=== PATIENT | female | born 1955 | race Caucasian/White ===

== ENCOUNTER → 2016-10-21 | Outpatient (CLI) | payer OTHER ==
[~2016-10-21] MED LIST: OLME5TAB4 PO
[2016-10-21 12:38] LABS: ASPARTATE AMINO TRANSFERASE 23 U/L (15-37); BLOOD UREA NITROGEN 17 mg/dL (7-18)
== END | disposition home or self-care (01) ==
LOC: LAB 12:10
PROVIDERS: ATTEND Internal Medicine
DX: K86.1 Other chronic pancreatitis (principal); R10.9 Unspecified abdominal pain
CPT/HCPCS: 36415; 80053; 83690; 85025

== ENCOUNTER → 2016-11-02 | Outpatient (CLI) | payer OTHER | END | disposition home or self-care (01) | LOC: CARD 12:49 | PROVIDERS: ATTEND Specialist | DX: G43.009 Migraine without aura, not intractable, without status migrainosus (principal) | CPT/HCPCS: 95819 ==

== ENCOUNTER → 2016-11-14 | Outpatient (CLI) | payer OTHER ==
[2016-11-14 22:33] LABS: ASPARTATE AMINO TRANSFERASE 26 U/L (15-37); BLOOD UREA NITROGEN 21 mg/dL (7-18)
== END | disposition home or self-care (01) ==
LOC: LAB 21:50
PROVIDERS: ATTEND Family Medicine
DX: L95.9 Vasculitis limited to the skin, unspecified (principal); I10 Essential (primary) hypertension; I48.0 Paroxysmal atrial fibrillation
CPT/HCPCS: 36415; 80053; 85025; 85610; 85651; 85730; 86200; 86225; 86235; 86256; 86430; 86431

== ENCOUNTER → 2016-11-20 | Outpatient (CLI) | payer OTHER ==
[~2016-11-20] MED LIST changes: +GADOBUTROL 7.5 MMOL/7.5 ML PFS ONE
== END | disposition home or self-care (01) ==
LOC: EDSTATUS 08:00 → RAD 12:38 → EDSTATUS 12:45
PROVIDERS: ATTEND Specialist
DX: G43.909 Migraine, unspecified, not intractable, without status migrainosus (principal); R26.9 Unspecified abnormalities of gait and mobility; R42 Dizziness and giddiness
CPT/HCPCS: 70544; 70553; A9585

== ENCOUNTER → 2017-12-03 | Outpatient (CLI) | payer OTHER ==
[~2017-12-03] MED LIST changes: -GADOBUTROL 7.5 MMOL/7.5 ML PFS ONE
== END | disposition home or self-care (01) ==
LOC: CFH 16:18
PROVIDERS: ATTEND Physician Assistant Surgical
DX: S82.142A Displaced bicondylar fracture of left tibia, initial encounter for closed fracture (principal); M71.22 Synovial cyst of popliteal space [Baker], left knee; M25.462 Effusion, left knee; X58.XXXA Exposure to other specified factors, initial encounter; Y93.89 Activity, other specified; Y92.89 Other specified places as the place of occurrence of the external cause; Y99.8 Other external cause status

== ENCOUNTER → 2018-01-21 | Outpatient (CLI) | payer OTHER ==
[2018-01-21 12:31] LABS: BASOPHILS # (AUTO) 0.03 x10^3/uL (0-0.1); BASOPHILS % (AUTO) 1 % (0-1); EOSINOPHILS # (AUTO) 0.11 x10^3/uL (0-0.4); EOSINOPHILS % (AUTO) 3 % (1-7); LYMPHOCYTES # (AUTO) 1.32 x10^3/uL (1-3.4); LYMPHOCYTES % (AUTO) 30 % (22-44); MD NO; MEAN CORPUSCULAR HEMOGLOBIN 30.2 pg (27.0-34.8); MEAN CORPUSCULAR HGB CONC 33.8 g/dL (32.4-35.8); MEAN CORPUSCULAR VOLUME 89.5 fL (80-100); MEAN PLATELET VOLUME 8.8 fL (7.4-10.4); MONOCYTES # (AUTO) 0.28 x10^3/uL (0.2-0.8); MONOCYTES % (AUTO) 7 % (2-9); NEUTROPHILS # (AUTO) 2.64 x10^3/uL (1.8-6.8); NEUTROPHILS % (AUTO) 60 % (42-75); PLATELET COUNT 224 x10^3/uL (130-400); RED BLOOD COUNT 4.55 x10^6/uL (3.82-5.3); RED CELL DISTRIBUTION WIDTH 13.9 % (9.6-15.2)
[2018-01-21 12:42] LABS: ALBUMIN 3.9 g/dL (3.4-5.0); ANION GAP 6 mmol/L (5-15); CALCIUM 9.1 mg/dL (8.5-10.1); CHLORIDE 107 mmol/L (98-107)
[2018-01-21 13:06] LABS: HCT (SEDRATE) 40.7 % (34.6-47.8)
[2018-01-21 13:09] LABS: % IRON SATURATION 21 % (20-55); ALANINE AMINOTRANSFERASE 19 U/L (12-78); ALKALINE PHOSPHATASE 75 U/L (45-117); BILIRUBIN,TOTAL 0.4 mg/dL (0.2-1.0); CHOL/HDL RATIO 2.4; CHOLESTEROL, TOTAL 153 mg/dL (140-239); CREATINE KINASE, TOTAL 62 U/L (26-192); CREATININE 0.85 mg/dL (0.55-1.02); HDL CHOL % 41 % (28-40); HDL CHOLESTEROL (DIRECT) 63 mg/dL (40-60); IRON LEVEL 74 mcg/dL (50-170); LDL CHOLESTEROL,CALCULATED 73 mg/dL (54-169); LDL/HDL RATIO 1.2 (0.5-3.0); T4 (THYROXINE) 8.4 mcg/dL (4.8-13.9); TOTAL IRON BINDING CAPACITY 351 mcg/dL (250-450); TOTAL PROTEIN 7.3 g/dL (6.4-8.2); TRIGLYCERIDES 85 mg/dL (50-200); VLDL CHOLESTEROL 17 mg/dL (0-25)
[2018-01-21 13:12] LABS: FOLATE LEVEL > 20.0 ng/mL (3.1-17.5)
== END | disposition home or self-care (01) ==
LOC: LAB 11:56
PROVIDERS: ATTEND Internal Medicine Cardiovascular Disease
DX: E55.9 Vitamin D deficiency, unspecified (principal); D64.9 Anemia, unspecified; M62.81 Muscle weakness (generalized); K86.1 Other chronic pancreatitis; F09 Unspecified mental disorder due to known physiological condition; R63.4 Abnormal weight loss; R10.10 Upper abdominal pain, unspecified; R53.83 Other fatigue; R07.9 Chest pain, unspecified; Z87.891 Personal history of nicotine dependence
CPT/HCPCS: 36415; 80053; 80061; 82150; 82550; 82607; 82728; 82746; 83540; 83550; 83690; 84436; 84443; 84481; 85025; 85651

== ENCOUNTER → 2018-08-03 | Outpatient (CLI) | payer OTHER | END | disposition home or self-care (01) | LOC: CFH 12:40 | PROVIDERS: ATTEND Internal Medicine Cardiovascular Disease | DX: I08.3 Combined rheumatic disorders of mitral, aortic and tricuspid valves (principal); I10 Essential (primary) hypertension; I48.0 Paroxysmal atrial fibrillation | CPT/HCPCS: 93306 ==

== ENCOUNTER → 2018-10-14 | Outpatient (CLI) | payer OTHER ==
[~2018-10-14] MED LIST changes: +GADOBUTROL 7.5 MMOL/7.5 ML VIAL ONE
[2018-10-14 09:07] LABS: BASOPHILS # (AUTO) 0.05 x10^3/uL (0-0.1); BASOPHILS % (AUTO) 1 % (0-1); EOSINOPHILS % (AUTO) 4 % (1-7); LYMPHOCYTES # (AUTO) 1.87 x10^3/uL (1-3.4); LYMPHOCYTES % (AUTO) 37 % (22-44); MD NO; MEAN CORPUSCULAR HEMOGLOBIN 29.6 pg (27.0-34.8); MEAN CORPUSCULAR HGB CONC 32.3 g/dL (32.4-35.8); MEAN CORPUSCULAR VOLUME 91.8 fL (80-100); MEAN PLATELET VOLUME 8.8 fL (7.4-10.4); MONOCYTES # (AUTO) 0.44 x10^3/uL (0.2-0.8); MONOCYTES % (AUTO) 9 % (2-9); NEUTROPHILS # (AUTO) 2.52 x10^3/uL (1.8-6.8); NEUTROPHILS % (AUTO) 50 % (42-75); PLATELET COUNT 237 x10^3/uL (130-400); RED BLOOD COUNT 4.89 x10^6/uL (3.82-5.3); RED CELL DISTRIBUTION WIDTH 13.9 % (9.6-15.2)
[2018-10-14 09:08] LABS: HCT (SEDRATE) 44.6 % (34.6-47.8)
[2018-10-14 09:13] LABS: ALANINE AMINOTRANSFERASE 20 U/L (12-78); ALBUMIN 4.1 g/dL (3.4-5.0); ANION GAP 4 mmol/L (5-15); CALCIUM 9.4 mg/dL (8.5-10.1); CHLORIDE 108 mmol/L (98-107); CREATININE 0.95 mg/dL (0.55-1.02)
[2018-10-14 09:15] LABS: ALKALINE PHOSPHATASE 81 U/L (45-117); BILIRUBIN,TOTAL 0.6 mg/dL (0.2-1.0); TOTAL PROTEIN 7.3 g/dL (6.4-8.2)
== END | disposition home or self-care (01) ==
LOC: RAD 08:50
PROVIDERS: ATTEND Internal Medicine
DX: N28.1 Cyst of kidney, acquired (principal); K86.1 Other chronic pancreatitis; R11.0 Nausea
CPT/HCPCS: 36415; 74183; 76700; 80053; 82150; 83690; 85025; 85651; A9585

== ENCOUNTER 2018-11-03 09:08 | Day surgery (SDC) | payer OTHER ==
[~2018-11-03] VITALS: Ht 160 cm; Wt 45.0 kg
[~2018-11-03 09:08] MED LIST changes: -GADOBUTROL 7.5 MMOL/7.5 ML VIAL ONE
[2018-11-03 09:30] VITALS: BP 139/86
[2018-11-03] MEDS ORDERED: LACTATED RINGERS 1,000 ML IV SCH (09:30)
[2018-11-03] MEDS ORDERED: ASPI-515 PO (09:56)
[2018-11-03] MEDS ORDERED: PROPOFOL 10 MG/ML, 20ML ONE ×4 (10:48→11:15)
[2018-11-03] MEDS ORDERED: PHENYLEPHRINE 10 MG/ML ONE (16:05)
== END 2018-11-03 13:45 | disposition home or self-care (01) ==
LOC: OUT 09:08
PROVIDERS: ATTEND Internal Medicine
DX: K86.1 Other chronic pancreatitis (principal); K21.0 Gastro-esophageal reflux disease with esophagitis; M41.9 Scoliosis, unspecified; I48.91 Unspecified atrial fibrillation; I10 Essential (primary) hypertension; Z98.890 Other specified postprocedural states; Z72.89 Other problems related to lifestyle; Z88.8 Allergy status to other drugs, medicaments and biological substances; Z91.018 Allergy to other foods; Z79.82 Long term (current) use of aspirin
CPT/HCPCS: 43259; J2370; J2704

== ENCOUNTER 2020-05-27 11:27 | Emergency (ER) | payer OTHER ==
[~2020-05-27] VITALS: Ht 160 cm; Wt 44.0 kg
[~2020-05-27 11:27] MED LIST changes: +ASPI-515 PO
--- NOTE | 2020-05-27 11:49 | NUR ---
PATIENTIS A 64F COMPLAINING OF CHEST PAIN X 2 WEEKS WITH INCREASED SOB. HAD A NEAR SYNCOPAL EPISODE YESTERDAY. THE PAIN IS IN THE LEFT CHEST AREA AND LEFT SCAPULA WITH DEEP INSPIRATION. SHE HAS A HISTORY OF AFIB AND SEES DR PEARSON. PROPERTY VALUER PLACED, CYCLING VITALS AND CONTINUOUS SPO2. CALL LIGHT WITHIN REACH AND WARM BLANKETS PROVIDED.
[2020-05-27 12:25] LABS: BASOPHILS % (AUTO) 2 % (0-1); EOSINOPHILS % (AUTO) 2 % (1-7); LYMPHOCYTES % (AUTO) 18 % (22-44); MD NO; MEAN CORPUSCULAR HEMOGLOBIN 30.7 pg (27.0-34.8); MEAN CORPUSCULAR HGB CONC 33.7 g/dL (32.4-35.8); MONOCYTES % (AUTO) 7 % (2-9); NEUTROPHILS % (AUTO) 71 % (42-75); PLATELET COUNT 243 x10^3/uL (130-400); RED BLOOD COUNT 4.53 x10^6/uL (3.82-5.3); RED CELL DISTRIBUTION WIDTH 13.4 % (9.6-15.2)
[2020-05-27] MEDS ORDERED: SODIUM CHLORIDE FLUSH 10ML SYR IVF ONE (12:30)
[2020-05-27] MEDS ORDERED: methylPREDNISolone SOD SUCC 125 MG/2 ML IVPush ONE (12:30)
[2020-05-27] MEDS ORDERED: DIPHENHYDRAMINE 50 MG/ML, 1ML IVPush ONE (12:30)
[2020-05-27 12:37] LABS: ALBUMIN 4.2 g/dL (3.4-5.0); ANION GAP 3 mmol/L (5-15); CALCIUM 9.2 mg/dL (8.5-10.1); CHLORIDE 110 mmol/L (98-107)
[2020-05-27 12:42] LABS: CREATININE 0.88 mg/dL (0.55-1.02); TROPONIN I < 0.015 ng/mL (0.000-0.045)
--- NOTE | 2020-05-27 13:01 | NUR ---
BREAK RN: ECHO AT BEDSIDE. MEDS BEFORE CT TO BE ADMIN
[2020-05-27] MEDS ORDERED: DIPHENHYDRAMINE 50 MG/ML, 1ML ONE (13:16)
[2020-05-27] MEDS ORDERED: methylPREDNISolone SOD SUCC 125 MG/2 ML ONE (13:16)
--- NOTE | 2020-05-27 13:27 | NUR ---
BREAK RN: PT AMUBLATED TO BATHROOM. PT PREMEDICATED FOR CT
--- NOTE | 2020-05-27 13:39 | NUR ---
REPORT RECVD FROM ANDREINA ABBASI, PATIENT RETURNED FROM RESTROOM, GAIT STEADY, NO COMPLAINTS OF CP OR SOB, PATIENT MEDICATED PER ORDER, PT TO CT PER CHRISTIANO.
[2020-05-27] MEDS ORDERED: OMNIPAQUE 350 MG/ML, 100ML BOTTLE ONE (13:49)
--- NOTE | 2020-05-27 13:49 | NUR ---
PT RETURN TO ROOM FROM CT. CONT SR PER MONITOR. PT STATES "IT FELT LIKE MY HEART INCREASED A LITTLE, NOTHING LIKE IN THE PAST" PER HOURLY ASSOCIATE, PT REMAINED IN THE 80'S DURING CT SCAN (CONTRAST ADMINISTRATION) PT AWARE OF WAITING FOR TEST RESULTS. PT PROVIDED WITH WARM BLANKETS.
--- NOTE | 2020-05-27 14:07 | NUR ---
PROVIDER AT BEDSIDE DISCUSSING PLAN OF CARE. PT RESTING COMFORTABLY.
[2020-05-27 14:53] VITALS: BP 125/72
--- NOTE | 2020-05-27 14:54 | NUR ---
Patient/Caregiver given discharge instructions and they have confirmed that they understand the instructions. Patient ambulatory with steady gait.
== END 2020-05-27 14:56 | disposition home or self-care (01) ==
LOC: ED 13:32
DX: R07.89 Other chest pain (principal); I08.3 Combined rheumatic disorders of mitral, aortic and tricuspid valves; R06.02 Shortness of breath; R05 Cough; I11.9 Hypertensive heart disease without heart failure; I48.0 Paroxysmal atrial fibrillation
CPT/HCPCS: 36415; 71045; 71275; 80048; 82040; 83880; 84484; 85025; 93005; 93306; 96374; 96375; 99285; J1200; J2930; Q9967

== ENCOUNTER 2020-08-05 08:37 | Outpatient (CLI) | payer OTHER ==
[~2020-08-05 08:37] MED LIST changes: -ASPI-515 PO; +ASPI-963 PO
== END 2020-08-05 23:59 | disposition home or self-care (01) ==
LOC: RAD 08:37
PROVIDERS: ATTEND Physician Assistant
DX: S32.119A Unspecified Zone I fracture of sacrum, initial encounter for closed fracture (principal); X58.XXXA Exposure to other specified factors, initial encounter; Y93.89 Activity, other specified; Y92.89 Other specified places as the place of occurrence of the external cause; Y99.8 Other external cause status
CPT/HCPCS: 72148

== ENCOUNTER 2020-11-08 14:48 | Outpatient (CLI) | payer OTHER | END 2020-11-08 23:59 | disposition home or self-care (01) | LOC: CFH 14:48 | PROVIDERS: ATTEND Internal Medicine Geriatric Medicine | DX: Z02.9 Encounter for administrative examinations, unspecified (principal) ==